=== PATIENT | female | born 1990 ===

== ENCOUNTER 2017-04-07 08:55 | Emergency (ER) | payer MEDICAID, OTHER ==
[2017-04-07 08:55] VITALS: BMI 22.6
[2017-04-07 09:40] VITALS: RESP 16; TEMP 98.2; O2SAT 100
--- NOTE | 2017-04-07 09:45 | ED PDOC ---
Arrival/HPI - General Time Seen by Provider: 04/07/17 09:41 Historian: Patient - History of Present Illness Narrative History of Present Illness (Text): 04/07/17 09:42 26 y/o female, no significant pmh, nkda, c/o abdominal pain x 2 days. Pt. stated that she has epigastric abdominal pain, more at night during sleep and stated that the pain feels "hot", no recent traveling, no nausea or vomiting, no night sweat, no rash, no numbness or tingling, no palpitation, no other medical or psychological complaint. Past Medical History - Provider Review Nursing Documentation Reviewed: Yes - Infectious Disease Hx of Infectious Diseases: None - Tetanus Immunization Tetanus Immunization: Unknown - Psychiatric Hx Depression: No Hx Emotional Abuse: No Hx Physical Abuse: No Hx Substance Use: No - Anesthesia Hx Anesthesia: No Hx Anesthesia Reactions: No Hx Malignant Hyperthermia: No - Suicidal Assessment Feels Threatened In Home Enviroment: No Family/Social History - Physician Review Nursing Documentation Reviewed: Yes Family/Social History: Unknown Family HX Smoking Status: Never Smoked Hx Alcohol Use: No Hx Substance Use: No Hx Substance Use Treatment: No Allergies/Home Meds Allergies/Adverse Reactions: Allergies No Known Allergies Allergy (Verified 12/01/15 16:08) Review of Systems - Review of Systems Constitutional: absent: Fatigue, Fevers Eyes: absent: Vision Changes ENT: absent: Hearing Changes Respiratory: absent: SOB, Cough Cardiovascular: absent: Chest Pain Gastrointestinal: Abdominal Pain. absent: Diarrhea, Nausea, Vomiting Musculoskeletal: absent: Arthralgias, Back Pain Skin: absent: Rash, Pruritis Neurological: absent: Headache, Dizziness Psychiatric: absent: Anxiety, Depression, Suicidal Ideation Physical Exam Vital Signs Reviewed: Yes Vital Signs Temp Pulse Resp BP Pulse Ox 04/07/17 09:31 98.2 F 77 16 109/70 100 Temperature: Afebrile Blood Pressure: Normal Pulse: Regular Respiratory Rate: Normal Appearance: Positive for: Well-Appearing, Non-Toxic, Comfortable Pain Distress: Mild Mental Status: Positive for: Alert and Oriented X 3 - Systems Exam Head: Present: Atraumatic, Normocephalic Pupils: Present: PERRL Extroacular Muscles: Present: EOMI Conjunctiva: Present: Normal Mouth: Present: Moist Mucous Membranes Neck: Present: Normal Range of Motion Respiratory/Chest: Present: Clear to Auscultation, Good Air Exchange. No: Respiratory Distress, Accessory Muscle Use Cardiovascular: Present: Regular Rate and Rhythm, Normal S1, S2. No: Murmurs Abdomen: Present: Tenderness (+epigastric tenderness), Normal Bowel Sounds. No : Distention, Peritoneal Signs Back: Present: Normal Inspection Upper Extremity: Present: Normal Inspection. No: Cyanosis, Edema Lower Extremity: Present: Normal Inspection. No: Edema Neurological: Present: GCS=15, Speech Normal, Motor Func Grossly Intact, Gait Normal, Memory Normal Skin: Present: Warm, Dry, Normal Color. No: Rashes Psychiatric: Present: Alert, Oriented x 3, Normal Insight, Normal Concentration Medical Decision Making ED Course and Treatment: 04/07/17 09:45 -labs/ua -gallbladder sonogram -IV pepcid -observe and reassess 04/07/17 12:24 -Urine hcg negative -Labs are non-significant -UA show no UTI -Gallbladder sonogram unremarkable ultrasound right upper quadrant abdomen. -Pt. feels well, asymptomatic, will discharge home. -Discharge home with pepcid, stay hydrated, bed rest, follow up with your own pmd and GI within 2 days, return to the ER for any new or worsening signs or symptoms. - Lab Interpretations Lab Results: 04/07/17 10:30 04/07/17 10:30 Lab Results 04/07/17 10:30: WBC 6.5, RBC 5.03, Hgb 13.4, Hct 41.0, MCV 81.5, MCH 26.6, MCHC 32.7, RDW 13.8, Plt Count 209, MPV 10.7, Gran % 70.4 H, Lymph % (Auto) 20.2 L, [place] % (Auto) 7.3 H, Eos % (Auto) 1.9, Baso % (Auto) 0.2, Gran # 4.55, Lymph # ( Auto) 1.3, [place] # (Auto) 0.5, Eos # (Auto) 0.1, Baso # (Auto) 0.01 04/07/17 10:30: Sodium 141, Potassium 4.2, Chloride 106, Carbon Dioxide 25, Anion Gap 14, BUN 8, Creatinine 0.7, Est GFR ( Amer) > 60, Est GFR (Non- Af Amer) > 60, Random Glucose 89, Calcium 9.7, Total Bilirubin 0.3, AST 23, ALT 32, Alkaline Phosphatase 65, Total Protein 7.0, Albumin 3.9, Globulin 3.1, Albumin/Globulin Ratio 1.3, Lipase 84 04/07/17 10:00: Urine Color Dark yellow, Urine Appearance Sl cloudy, Urine pH 6.0, Ur Specific [place] >= 1.030, Urine Protein Trace H, Urine Glucose (UA) Negative, Urine Ketones 15 H, Urine Blood Trace-intact H, Urine Nitrate Negative , Urine Bilirubin Small H, Urine Urobilinogen 0.2, Ur Leukocyte Esterase Negative, Urine RBC 0 - 2, Urine WBC Negative, Ur Epithelial Cells 3 - 4 - RAD Interpretation Radiology Orders: 04/07/17 09:52 GALL BLADDER [US] Stat HISTORY: epigastric pain COMPARISON: None. TECHNIQUE: Sonographic evaluation of the right upper quadrant of the abdomen. FINDINGS: LIVER: Measures 15.3 cm in length. Normal echogenicity of the liver parenchyma. No mass. No intrahepatic bile duct dilatation. GALLBLADDER: Unremarkable. No gallstones. COMMON BILE DUCT: Measures 4.5 mm. No stones. No dilatation. PANCREAS: Unremarkable as visualized. No mass. No ductal dilatation. RIGHT KIDNEY: Measures cm in length. Normal echogenicity. No calculus, mass, or hydronephrosis. AORTA: No aneurysmal dilatation. IVC: Unremarkable. OTHER FINDINGS: None . IMPRESSION: Unremarkable ultrasound right upper quadrant abdomen. 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 Disposition/Present on Arrival - Present on Arrival Any Indicators Present on Arrival: No History of DVT/PE: No History of Uncontrolled Diabetes: No Urinary Catheter: No History of Decub. Ulcer: No History Surgical Site Infection Following: None - Disposition Have Diagnosis and Disposition been Completed?: Yes Diagnosis: Gastritis Disposition: HOME/ ROUTINE Disposition Time: 11:23 Patient Plan: Discharge Patient Problems: Current Active Problems Problem Status Onset Gastritis Acute Condition: IMPROVED Discharge Instructions (ExitCare): Gastritis (DC) Additional Instructions: -Discharge home with pepcid, stay hydrated, bed rest, follow up with your own pmd and GI within 2 days, return to the ER for any new or worsening signs or symptoms. Prescriptions: Famotidine [Pepcid] 20 mg PO BID #28 tab Referrals: Katey Hoffman MD [Primary Care Provider] - Follow up with primary Danny Nixon MD [Staff Provider] - Follow up with primary Forms: WORK NOTE
[2017-04-07 10:32] LABS: URINE BILIRUBIN SMALL (NEGATIVE); URINE BLOOD TRACE-INTACT (NEGATIVE); URINE GLUCOSE (UA) NEGATIVE (NEGATIVE); URINE LEUKOCYTE ESTERASE NEGATIVE Leu/uL (NEGATIVE); URINE NITRATE NEGATIVE (NEGATIVE); URINE PROTEIN TRACE mg/dL (<30 mg/dL); URINE UROBILINOGEN 0.2 E.U./dL (<1 E.U./dL)
[2017-04-07 10:33] LABS: URINE APPEARANCE SL CLOUDY (CLEAR); URINE COLOR DARK YELLOW (YELLOW)
[2017-04-07 10:40] LABS: URINE RBC 0 - 2 /hpf (0-2)
[2017-04-07 10:41] LABS: URINE WBC NEGATIVE /hpf (0-6)
[2017-04-07 11:01] LABS: BASO # 0.01 K/mm3 (0.0-2.0); BASO % 0.2 % (0.0-3.0); EOS # 0.1 (0.0-0.7); EOS % 1.9 % (1.5-5.0); GRAN # 4.55 (1.4-6.5); GRAN % 70.4 % (50.0-68.0); HEMOGLOBIN 13.4 g/dL (12.0-16.0); LYMPH # 1.3 (1.2-3.4); LYMPH % 20.2 % (22.0-35.0); MEAN CELL VOLUME 81.5 fl (80.0-105.0); MEAN CORPUSCULAR HEMOGLOBIN 26.6 pg (25.0-35.0); MEAN CORPUSCULAR HGB CONC 32.7 g/dl (31.0-37.0); MEAN PLATELET VOLUME 10.7 fl (7.0-11.0); MONO # 0.5 (0.1-0.6); MONO % 7.3 % (1.0-6.0); RBC 5.03 10^6/uL (3.5-6.1); RED CELL DISTRIBUTION WIDTH 13.8 % (11.5-14.5); WHITE BLOOD COUNT 6.5 10^3/ul (4.5-11.0)
[2017-04-07 11:06] LABS: ALB/GLOB RATIO 1.3 (1.1-1.8); ALBUMIN 3.9 g/dL (3.0-4.8); ALT/SGPT 32 U/L (7-56); AST/SGOT 23 U/L (14-36); BLOOD UREA NITROGEN 8 mg/dL (7-21); CALCIUM 9.7 mg/dL (8.4-10.5); GFR AFRICAN-AMERICAN > 60; GFR NON-AFRICAN AMERICAN > 60; LIPASE 84 U/L (23-300)
--- NOTE | 2017-04-07 12:04 | US ---
HISTORY: epigastric pain COMPARISON: None. TECHNIQUE: Sonographic evaluation of the right upper quadrant of the abdomen. FINDINGS: LIVER: Measures 15.3 cm in length. Normal echogenicity of the liver parenchyma. No mass. No intrahepatic bile duct dilatation. GALLBLADDER: Unremarkable. No gallstones. COMMON BILE DUCT: Measures 4.5 mm. No stones. No dilatation. PANCREAS: Unremarkable as visualized. No mass. No ductal dilatation. RIGHT KIDNEY: Measures cm in length. Normal echogenicity. No calculus, mass, or hydronephrosis. AORTA: No aneurysmal dilatation. IVC: Unremarkable. OTHER FINDINGS: None . IMPRESSION: Unremarkable ultrasound right upper quadrant abdomen.
[2017-04-07 12:35] VITALS: BP 110/82; PULSE 75
== END 2017-04-07 12:34 | disposition home or self-care (01) ==
LOC: ED 08:55
DX: K29.70 Gastritis, unspecified, without bleeding (principal)